=== PATIENT | male | born 1990 | race Caucasian/White ===

== ENCOUNTER 2019-02-12 20:10 | Emergency (ER) | payer SELFPAY ==
[2019-02-12] MEDS ORDERED: SULFAMETHOXAZOLE/TRIMETHOPRIM 800-160 MG TABLET PO ONE (22:32)
[2019-02-12] MEDS ORDERED: LIDOCAINE 1% INJ-PF (10 MG/ML) 30 ML SDV INJ ONE (22:32)
[2019-02-12] MEDS ORDERED: CEPHALEXIN 500 MG CAPSULE PO ONE (22:32)
[2019-02-12] MEDS ORDERED: HYDROCODONE/ACETAMINOPHEN 10-325 MG TABLET PO ONE (22:33)
--- NOTE | 2019-02-13 00:13 | ER Document Report ---
ED General - General Chief Complaint: Groin Pain Stated Complaint: RIGHT LEG PAIN Time Seen by Provider: 02/12/19 22:10 Notes: Pt. is an otherwise healthy 28-year-old male presents to the emergency department with area of redness and swelling noted to his proximal right inner thigh. Patient states he noticed the redness approximately a week ago. States is gotten worse last couple of days which is why he presents to the emergency department. Patient's denying any fevers or discharge from the site. Patient's denying any allergies to any medications, denies any MRSA history or history of abscesses in the past. TRAVEL OUTSIDE OF THE [place] IN LAST 30 DAYS: No Past Medical History - General Information source: Patient - Social History Smoking Status: Never Smoker Family History: Reviewed & Not Pertinent Patient has suicidal ideation: No Patient has homicidal ideation: No Review of Systems - Review of Systems Constitutional: denies: Fever EENT: No symptoms reported Cardiovascular: No symptoms reported Respiratory: No symptoms reported Gastrointestinal: No symptoms reported Genitourinary: No symptoms reported Male Genitourinary: No symptoms reported Musculoskeletal: No symptoms reported Skin: See HPI Hematologic/Lymphatic: No symptoms reported Neurological/Psychological: No symptoms reported Physical Exam - Vital signs Vitals: Temp Pulse Resp BP Pulse Ox 98.2 F 84 18 117/70 99 02/12/19 20:42 02/12/19 20:42 02/12/19 20:42 02/12/19 20:42 02/12/19 20:42 - Notes Notes: GENERAL: Alert, interacts well. No acute distress. HEAD: Normocephalic, atraumatic. EYES: Pupils equal, round, and reactive to light. Extraocular movements intact. ENT: Oral mucosa moist, tongue midline. NECK: Full range of motion. Supple. Trachea midline. LUNGS: Clear to auscultation bilaterally, no wheezes, rales, or rhonchi. No respiratory distress. HEART: Regular rate and rhythm. No murmur ABDOMEN: Soft, non-tender. Non-distended. Bowel sounds present in all 4 quadrants. EXTREMITIES: Moves all 4 extremities spontaneously. No edema, normal radial and dorsalis pedis pulses bilaterally. No cyanosis. BACK: no cervical, thoracic, lumbar midline tenderness. No saddle anesthesia, normal distal neurovascular exam. NEUROLOGICAL: Alert and oriented x3. Normal speech. cranial nerves II through XII grossly intact PSYCH: Normal affect, normal mood. SKIN: Warm, dry, normal turgor. 6 cm x 6 cm area of erythema noted to the proximal right inner thigh. Area of fluctuance noted central. Course - Re-evaluation Re-evalutation: 02/13/19 00:13 Incision and drain performed, see procedure note for details. Patient tolerated well. Based on cellulitic tissue we will treat with antibiotics. At this time will discharge with return precautions and follow-up recommendations. Verbal discharge instructions given a the bedside and opportunity for questions given. Medication warnings reviewed. Patient is in agreement with this plan and has verbalized understanding of return precautions and the need for primary care follow-up in the next 24-72 hours. This medical record was dictated with voice recognizing software. There may be grammatical, syntax errors that are unintended. - Vital Signs Vital signs: Temp Pulse Resp BP Pulse Ox 98.2 F 84 18 117/70 99 02/12/19 20:42 02/12/19 20:42 02/12/19 20:42 02/12/19 20:42 02/12/19 20:42 Procedures - Incision and Drainage right thigh Type: Simple Anesthetic type: 1% Lidocaine mL's of anesthetic: 5 Blade size: 11 I&D procedure: Betadine prep applied, Shurclens applied, Sterile dressing applied Incision Method: Incision made by scalpel Amount/type of drainage: copious purulent Discharge - Discharge Clinical Impression: Abscess Cellulitis Qualifiers: Site of cellulitis: extremity Site of cellulitis of extremity: lower extremity Laterality: right Qualified Code(s): L03.115 - Cellulitis of right lower limb Condition: Stable Disposition: HOME, SELF-CARE Instructions: Abscess ([facility]), Cephalexin ([facility]), Post Incision and Drainage, Trimethoprim-Sulfa ([facility]), Oral Narcotic Medication ([facility]), Cellulitis ([facility]) Additional Instructions: As we discussed you have been seen and treated in the emergency department for an abscess. This is a pocket of infection in your skin. Please take antibiotics as prescribed. Please also use moist heat and warm baths to express further discharge. Please return to the emergency department should the redness or swelling increased after 48 hours of taking antibiotics. Please follow-up with your primary care provider. Prescriptions: Sulfamethoxazole/Trimethoprim [Bactrim Ds Tablet] 1 each PO BID 7 Days #14 tablet Cephalexin Monohydrate [Keflex 500 mg Capsule] 500 mg PO BID 7 Days #14 capsule Forms: Return to Work Referrals: [facility] [Provider Group] - Follow up as needed [facility] [Provider Group] - Follow up as needed
[2019-02-13 00:20] VITALS: BP 132/74
== END 2019-02-13 00:28 | disposition home or self-care (01) ==
LOC: ER 20:10
DX: L03.115 Cellulitis of right lower limb (principal)
CPT/HCPCS: 99283; 10060; J3490